=== PATIENT | male | born 1950 | race Caucasian/White ===

== ENCOUNTER 2020-12-05 12:03 | Inpatient (IN) ==
[2020-12-05 14:25] LABS: Basophils # (auto) 0.01 K/uL (0-0.2); Basophils % (auto) 0.1 %; Eosinophils # (auto) 0.01 K/uL (0-0.5); Eosinophils % (auto) 0.1 %; Hematocrit (blood only) 39.6 % (42-52); Hemoglobin 13.3 g/dL (14.0-18.0); Immature Granulocytes # (auto) 0.04 K/uL (0.00-0.02); Immature Granulocytes % (auto) 0.4 %; Lymphocytes # (auto) 0.41 K/uL (1.2-3.4); Lymphocytes % (auto) 4.2 %; Mean Corpuscular Hemoglobin 28.4 pg (25-34); Mean Corpuscular Hgb Conc 33.6 g/dL (32-36); Mean Corpuscular Volume 84.4 fL (80-100); Mean Platelet Volume 9.8 fL (7.4-10.4); Monocytes # (auto) 0.65 K/uL (0.11-0.59); Monocytes % (auto) 6.7 %; Neutrophils # (auto) 8.63 K/uL (1.4-6.5); Neutrophils % (auto) 88.5 %; Platelet Count 205 K/uL (130-400); RDW Coefficient of Variation 13.5 % (11.5-14.5); RDW Standard Deviation 41.5 fL (36.4-46.3); Red Blood Count 4.69 M/uL (4.7-6.1); White Blood Count 9.75 K/uL (4.8-10.8)
[2020-12-05 14:46] LABS: Albumin Level 3.1 gm/dl (3.4-5.0); BUN Creatinine Ratio 14.8 (10-20); Calcium 8.6 mg/dl (8.5-10.1); Creatinine Clr Calc Pharmacy 62.4 ml/min; Est GFR (African American) 71.3 ml/min; Est GFR (Non-African American) 61.5 ml/min
[2020-12-05 14:48] LABS: Albumin Globulin Ratio 0.7 (0.9-2); Bilirubin,Total 0.7 mg/dl (0.2-1); Globulin 4.6 gm/dl (2.5-4.0); Total Protein 7.7 gm/dl (6.4-8.2)
[2020-12-05 15:00] LABS: Appearance Urine Clear (Clear); Bacteria Urine Automated Negative (Negative); Blood Urine Negative (Negative); Color Urine Dark Yellow; Glucose Urine UA Negative (Negative); Ketones Urine Trace (Negative); Leukocyte Esterase Urine Negative (Negative); Nitrite Urine Negative (Negative); Protein Urine 2+ (Negative); Specific Gravity Urine 1.027 (1.000-1.030); Urobilinogen Urine Positive (Negative); pH Urine 5.5 (4.5-7.5)
[2020-12-05 15:01] LABS: Bilirubin Urine 1+ (Negative)
--- NOTE | 2020-12-05 15:13 | XRay Report ---
XR chest 1V portable HISTORY: Fever COMPARISON: None. FINDINGS: No pneumothorax. No focal lung consolidations to suggest pneumonia. There is blunting of th e left lateral costophrenic sulcus which may represent a small left pleural effusion. There is a larg e hiatus hernia. The heart is normal in size. No evidence for pulmonary edema. Small linear density w ithin the left midlung zone favors subsegmental atelectasis are scarring. IMPRESSION: 1. Blunting of the left lateral costophrenic sulcus which likely represents a small left pleural effu avinash. 2. No focal lung consolidations to suggest pneumonia. 3. Large hiatus hernia. ACT 112: Negative or not required by law. Electronically signed by: Red Grey M.D. 12/05/2020 3:12 PM
[2020-12-05] MEDS ORDERED: cefTRIAXone SODIUM 1,000 MG/50 ML BAG IV STA (15:38)
[2020-12-05] MEDS ORDERED: SODIUM CHLORIDE 0.9% 1000ML 1,000 ML IV ONE (15:38)
--- NOTE | 2020-12-05 15:51 | Emergency Department Note ---
Impression & Plan Atrial fibrillation with rapid ventricular response, Anaplasmosis, Elevated liver enzymes, Hyponatremia ED Provider Note NAME: RODOLFO GRAYSON AGE: 70 SEX: M : 1950 ARRIVES VIA: Walk-In INFORMANT: Patient, ED PROVIDER(S): Afshin Nobles DO CHIEF COMPLAINT: Fever HPI: The patient is a 70-year-old male who presented to the emergency department for an evaluation of fever. The patient states he has had generalized weakness over the course of the last 9 days. The patient states he has been having intermittent fevers. He last took medication for fever yesterday. The patient states he has some abdominal pain. He denies having any nausea or vomiting. He denies having any chest pain or difficulty breathing. He does have a slight cough which is nonproductive. He states that he has loss of taste and has no appetite. He has had decreased p.o. intake because this. He denies having any rash or recent tick bites. The patient denies having any recent traveling. He denies having any dysuria or frequency. The patient was seen by his primary care physician today and was referred to the emergency department for further evaluation as well as possible blood infection. ROS: See above HPI for pertinent positives & negatives. A total of 10 systems reviewed and were otherwise negative. PAST MEDICAL HISTORY: See Below PAST SURGICAL HISTORY: See Below FAMILY HISTORY: See Below SOCIAL HISTORY: See Below HOME MEDICATIONS: See Below ALLERGIES: See Below VITALS: See Below PHYSICAL EXAMINATION: GENERAL: Patient is awake alert in no acute distress patient is resting comfortably and showing no signs of anxiety EYES: The conjunctivae are clear. The pupils are round and reactive. EARS, NOSE, MOUTH AND THROAT: The nose is without any evidence of any deformity. NECK: The neck is nontender and supple. RESPIRATORY: Normal respiratory effort is noted there is no evidence of wheezing rhonchi or rales CARDIOVASCULAR: Regular rate and rhythm noted there no murmurs rubs or gallops normal S1 normal S2. GASTROINTESTINAL: The abdomen is soft. Abdomen is nontender. MUSCULOSKELETAL/EXTREMITIES: There is no evidence of gross deformity full range of motion is noted in the hips and shoulders. SKIN: There is no obvious evidence of any rash. There are no petechiae, pallor or cyanosis noted. NEUROLOGIC: Patient is awake alert and oriented x3 strength is symmetric patellar reflexes are 2+ bilaterally MEDICAL DECISION MAKING: The patient is a 70-year-old male who presented to the emergency department for evaluation of febrile illness. The patient's been having symptoms for the last 2 days. He went to see his family doctor but was ultimately referred to the emergency department for further evaluation. The patient was treated with IV fluids in the emergency department. He was also treated with IV antibiotics. Given his laboratory findings I thought his condition could be consistent with a tickborne illness. Those laboratories were sent. While the patient was being evaluated he started to have episodes of tachycardia and was found to be in rapid atrial fibrillation. He was treated with further IV fluids as well as IV Cardizem but given his blood pressure he only had a small dose. His rate improved. I discussed the patient's condition with the on-call [facility] hospitalist group. They have agreed to evaluate the patient in the emergency department for further management and disposition. It is possible the patient may require further cardiac work-up as this would be a new diagnosis for him. Triage Nursing notes reviewed. Prior medical records reviewed Vital Signs: reviewed and remarkable for tachycardia and hypotension. Differential diagnosis: Viral syndrome, otitis, pharyngitis, pneumonia, influenza, meningitis, urinary tract infection, sepsis, bacteremia, as well as other pathologies. ER treatment provided: See below Diagnostics interpreted by me: ECG: EKG was obtained in the emergency department. My interpretation is atrial fibrillation with rapid ventricular response at 135 bpm. There was no PVCs noted. A right bundle branch block pattern was noted. This was compared to a tracing from November [id number]. The atrial fibrillation as well as the conduction delay is new compared to the previous tracing. Cardiac Monitoring: An order was placed for continuous cardiac monitoring. The monitor shows a rate of 111 bpm with sinus rhythm with runs of atrial fibrillation. Laboratory studies: As stated above and show below. Imaging studies: See below Consultation(s): 1814: I discussed this case with Johnathon who is on-call for the [facility] hospitalist group. ED COURSE: Procedures: none PDMP:reviewed and no issues Critical Care: I have personally spent greater than 35 minutes of critical care time in the direct management of this patient. This includes bedside care, interpretation of diagnostic studies, and testing, discussion with consultants, patient, and family members, and other required patient management activities. This 35 minutes is in excess of all separately billable procedures. Past Med/Surg History Medical History (Updated 12/05/20 @ 20:26 by Afshin Nobles DO) Hiatal hernia (11/30/12) Hyperlipidemia (11/30/12) Surgical History S/P cholecystectomy Social History Smoking Status: Former smoker Smoking End Date: 50 years ago for two years.; Hx Alcohol Use: No Hx Substance Use: No Preferred Language: Polish Communication Ability: Effective Traffic Counter Required: No Beliefs That Will Affect Care: None Current Living Situation: Significant Other Other Information That Helps Us Care for You: No Feels Safe at Home: Yes Safety Concerns: Feels Safe At This Time Assistive Devices: Glasses and Hearing Aid - Bilateral Allergies Allergies Allergy/AdvReac Type Severity Reaction Status Date / Time No Known Allergies Allergy Unverified 12/05/20 17:01 Home Meds Home Medications Medication Instructions Recorded Confirmed acetaminophen 325 mg tablet 650 mg PO QID PRN 12/05/20 12/05/20 (Tylenol) rosuvastatin 5 mg tablet 5 mg PO HS 12/05/20 12/05/20 Results & Data (ED) Vital Signs Vital Signs - 24 hr 12/05/20 12:29 12/05/20 15:00 12/05/20 15:30 Temperature 37 C Temperature Source Temporal Artery Scan Pulse Rate 127 H 113 H 109 H Pulse Rate [Left Apical] 113 H Pulse Rate from SpO2 Sensor 113 H 106 H Pulse Rhythm [Left Apical] Regular Pulse Strength [Left Apical] Normal Respiratory Rate 20 16 24 Respiratory Effort / Characteristics Non-Labored Spontaneous Non-Labored Spontaneous Respiratory Depth Normal Normal Respiratory Pattern Regular Regular Blood Pressure 122/80 113/78 106/72 Blood Pressure [Left Arm] 113/78 Blood Pressure Mean 94 89 83 Blood Pressure Mean [Left Arm] 89 Blood Pressure Position Sitting Blood Pressure Position [Left Arm] Lying Pulse Oximetry 94 97 95 Oxygen Delivery Method Room Air Room Air Sepsis Recent Fever Within 48 Hours No Sepsis New/Unexplained Change in Mental Status N/A Sepsis Action Taken by Nursing No Action Required 12/05/20 17:20 12/05/20 17:30 12/05/20 18:00 Temperature Temperature Source Pulse Rate 167 H 139 H 113 H Pulse Rate [Left Apical] Pulse Rate from SpO2 Sensor 129 H 111 H Pulse Rhythm [Left Apical] Pulse Strength [Left Apical] Respiratory Rate 26 H 23 24 Respiratory Effort / Characteristics Respiratory Depth Respiratory Pattern Blood Pressure 92/70 L 110/76 Blood Pressure [Left Arm] Blood Pressure Mean 77 87 Blood Pressure Mean [Left Arm] Blood Pressure Position Blood Pressure Position [Left Arm] Pulse Oximetry 95 94 Oxygen Delivery Method Sepsis Recent Fever Within 48 Hours Sepsis New/Unexplained Change in Mental Status Sepsis Action Taken by Nursing 12/05/20 18:30 Temperature Temperature Source Pulse Rate 110 H Pulse Rate [Left Apical] Pulse Rate from SpO2 Sensor 109 H Pulse Rhythm [Left Apical] Pulse Strength [Left Apical] Respiratory Rate 22 Respiratory Effort / Characteristics Respiratory Depth Respiratory Pattern Blood Pressure 112/78 Blood Pressure [Left Arm] Blood Pressure Mean 89 Blood Pressure Mean [Left Arm] Blood Pressure Position Blood Pressure Position [Left Arm] Pulse Oximetry 94 Oxygen Delivery Method Sepsis Recent Fever Within 48 Hours Sepsis New/Unexplained Change in Mental Status Sepsis Action Taken by Group Home Medications Current Medication List: was personally reviewed by me Laboratory Data Attestation: I reviewed the patient's lab results. Result diagrams: 12/05/20 14:13 12/05/20 14:13 Lab Results 12/05/20 12/05/20 12/05/20 Range/Units 14:13 14:13 14:13 WBC 9.75 (4.8-10.8) K/uL RBC 4.69 L (4.7-6.1) M/uL Hgb 13.3 L (14.0-18.0) g/dL Hct 39.6 L (42-52) % MCV 84.4 (80-100) fL MCH 28.4 (25-34) pg MCHC 33.6 (32-36) g/dL RDW Std Deviation 41.5 (36.4-46.3) fL RDW Coeff of Sandro 13.5 (11.5-14.5) % Plt Count 205 (130-400) K/uL MPV 9.8 (7.4-10.4) fL Immature Gran % (Auto) 0.4 % Neut % (Auto) 88.5 % Lymph % (Auto) 4.2 % [place] % (Auto) 6.7 % Eos % (Auto) 0.1 % Baso % (Auto) 0.1 % Neut # (Auto) 8.63 H (1.4-6.5) K/uL Lymph # (Auto) 0.41 L (1.2-3.4) K/uL [place] # (Auto) 0.65 H (0.11-0.59) K/uL Eos # (Auto) 0.01 (0-0.5) K/uL Baso # (Auto) 0.01 (0-0.2) K/uL Immature Gran # (Auto) 0.04 H (0.00-0.02) K/uL Sodium 129 L (136-145) mmol/L Potassium 4.0 (3.5-5.1) mmol/L Chloride 97 L (98-107) mmol/L Carbon Dioxide 24 (21-32) mmol/L Anion Gap 9.0 (3-11) BUN 18 (7-18) mg/dl Creatinine 1.19 (0.6-1.4) mg/dl Est Cr Clr Drug Dosing 62.4 ml/min Est GFR ( Amer) 71.3 ml/min Est GFR (Non-Af Amer) 61.5 ml/min BUN/Creatinine Ratio 14.8 (10-20) Glucose 119 H (70-99) mg/dl Calcium 8.6 (8.5-10.1) mg/dl Magnesium (1.8-2.4) mg/dl Total Bilirubin 0.7 (0.2-1) mg/dl AST 68 H (15-37) U/L ALT 116 H (12-78) U/L Alkaline Phosphatase 140 H (45-117) U/L Troponin I (0-0.045) ng/ml Total Protein 7.7 (6.4-8.2) gm/dl Albumin 3.1 L (3.4-5.0) gm/dl Globulin 4.6 H (2.5-4.0) gm/dl Albumin/Globulin Ratio 0.7 L (0.9-2) TSH (0.300-4.500) uIu/ml Urine Color Urine Appearance (Clear) Urine pH (4.5-7.5) Ur Specific [place] (1.000-1.030) Urine Protein (Negative) Urine Glucose (UA) (Negative) Urine Ketones (Negative) Urine Blood (Negative) Urine Nitrite (Negative) Urine Bilirubin (Negative) Urine Urobilinogen (Negative) Ur Leukocyte Esterase (Negative) Urine WBC (Auto) (0-5) /hpf Urine RBC (Auto) (0-4) /hpf U Hyaline Cast (Auto) (0-5) /lpf U Epithel Cells (Auto) (0-5) /lpf Urine Bacteria (Auto) (Negative) Anaplasma Smear See Comment A Anaplasma Comment Not Reportable Lyme Disease IgG Ab (Negative) Lyme Disease IgM Ab (Negative) COVID-19 Eval Order SARS-CoV-2 (PCR) (Negative) 12/05/20 12/05/20 12/05/20 Range/Units 14:13 14:45 16:19 WBC (4.8-10.8) K/uL RBC (4.7-6.1) M/uL Hgb (14.0-18.0) g/dL Hct (42-52) % MCV (80-100) fL MCH (25-34) pg MCHC (32-36) g/dL RDW Std Deviation (36.4-46.3) fL RDW Coeff of Sandro (11.5-14.5) % Plt Count (130-400) K/uL MPV (7.4-10.4) fL Immature Gran % (Auto) % Neut % (Auto) % Lymph % (Auto) % [place] % (Auto) % Eos % (Auto) % Baso % (Auto) % Neut # (Auto) (1.4-6.5) K/uL Lymph # (Auto) (1.2-3.4) K/uL [place] # (Auto) (0.11-0.59) K/uL Eos # (Auto) (0-0.5) K/uL Baso # (Auto) (0-0.2) K/uL Immature Gran # (Auto) (0.00-0.02) K/uL Sodium (136-145) mmol/L Potassium (3.5-5.1) mmol/L Chloride (98-107) mmol/L Carbon Dioxide (21-32) mmol/L Anion Gap (3-11) BUN (7-18) mg/dl Creatinine (0.6-1.4) mg/dl Est Cr Clr Drug Dosing ml/min Est GFR ( Amer) ml/min Est GFR (Non-Af Amer) ml/min BUN/Creatinine Ratio (10-20) Glucose (70-99) mg/dl Calcium (8.5-10.1) mg/dl Magnesium 2.5 H (1.8-2.4) mg/dl Total Bilirubin (0.2-1) mg/dl AST (15-37) U/L ALT (12-78) U/L Alkaline Phosphatase (45-117) U/L Troponin I < 0.015 (0-0.045) ng/ml Total Protein (6.4-8.2) gm/dl Albumin (3.4-5.0) gm/dl Globulin (2.5-4.0) gm/dl Albumin/Globulin Ratio (0.9-2) TSH 1.180 (0.300-4.500) uIu/ml Urine Color Dark Yellow Urine Appearance Clear (Clear) Urine pH 5.5 (4.5-7.5) Ur Specific [place] 1.027 (1.000-1.030) Urine Protein 2+ H (Negative) Urine Glucose (UA) Negative (Negative) Urine Ketones Trace H (Negative) Urine Blood Negative (Negative) Urine Nitrite Negative (Negative) Urine Bilirubin 1+ H (Negative) Urine Urobilinogen Positive H (Negative) Ur Leukocyte Esterase Negative (Negative) Urine WBC (Auto) 1-5 (0-5) /hpf Urine RBC (Auto) 5-10 H (0-4) /hpf U Hyaline Cast (Auto) 10-30 H (0-5) /lpf U Epithel Cells (Auto) 10-20 H (0-5) /lpf Urine Bacteria (Auto) Negative (Negative) Anaplasma Smear Anaplasma Comment Lyme Disease IgG Ab Negative (Negative) Lyme Disease IgM Ab Negative (Negative) COVID-19 Eval Order SARS-CoV-2 (PCR) (Negative) 12/05/20 12/05/20 Range/Units 17:30 17:30 WBC (4.8-10.8) K/uL RBC (4.7-6.1) M/uL Hgb (14.0-18.0) g/dL Hct (42-52) % MCV (80-100) fL MCH (25-34) pg MCHC (32-36) g/dL RDW Std Deviation (36.4-46.3) fL RDW Coeff of Sandro (11.5-14.5) % Plt Count (130-400) K/uL MPV (7.4-10.4) fL Immature Gran % (Auto) % Neut % (Auto) % Lymph % (Auto) % [place] % (Auto) % Eos % (Auto) % Baso % (Auto) % Neut # (Auto) (1.4-6.5) K/uL Lymph # (Auto) (1.2-3.4) K/uL [place] # (Auto) (0.11-0.59) K/uL Eos # (Auto) (0-0.5) K/uL Baso # (Auto) (0-0.2) K/uL Immature Gran # (Auto) (0.00-0.02) K/uL Sodium (136-145) mmol/L Potassium (3.5-5.1) mmol/L Chloride (98-107) mmol/L Carbon Dioxide (21-32) mmol/L Anion Gap (3-11) BUN (7-18) mg/dl Creatinine (0.6-1.4) mg/dl Est Cr Clr Drug Dosing ml/min Est GFR ( Amer) ml/min Est GFR (Non-Af Amer) ml/min BUN/Creatinine Ratio (10-20) Glucose (70-99) mg/dl Calcium (8.5-10.1) mg/dl Magnesium (1.8-2.4) mg/dl Total Bilirubin (0.2-1) mg/dl AST (15-37) U/L ALT (12-78) U/L Alkaline Phosphatase (45-117) U/L Troponin I (0-0.045) ng/ml Total Protein (6.4-8.2) gm/dl Albumin (3.4-5.0) gm/dl Globulin (2.5-4.0) gm/dl Albumin/Globulin Ratio (0.9-2) TSH (0.300-4.500) uIu/ml Urine Color Urine Appearance (Clear) Urine pH (4.5-7.5) Ur Specific [place] (1.000-1.030) Urine Protein (Negative) Urine Glucose (UA) (Negative) Urine Ketones (Negative) Urine Blood (Negative) Urine Nitrite (Negative) Urine Bilirubin (Negative) Urine Urobilinogen (Negative) Ur Leukocyte Esterase (Negative) Urine WBC (Auto) (0-5) /hpf Urine RBC (Auto) (0-4) /hpf U Hyaline Cast (Auto) (0-5) /lpf U Epithel Cells (Auto) (0-5) /lpf Urine Bacteria (Auto) (Negative) Anaplasma Smear Anaplasma Comment Lyme Disease IgG Ab (Negative) Lyme Disease IgM Ab (Negative) COVID-19 Eval Order Covid19 at [facility] SARS-CoV-2 (PCR) NEGATIVE (Negative) Administered Medications Magnesium Sulfate/Dextrose (Magnesium Sulfate / D5w) 1 gm in 100 mls @ 50 mls/hr IV Q2H STA Stop: 12/05/20 20:22 Last Infusion: 12/05/20 19:30 Dose: 0 mls/hr Documented by: [id number] Admin: 12/05/20 18:30 Dose: 50 mls/hr Documented by: [id number] Discontinued Medications Diltiazem HCl (Diltiazem Hcl 5 Mg/Ml 5 Ml Vial) 5 mg IV NOW STA Stop: 12/05/20 18:01 Last Admin: 12/05/20 18:23 Dose: 5 mg Documented by: [id number] Cosigned by: [id number] Doxycycline Hyclate (Doxycycline Hyclate 100 Mg Cap) 200 mg PO NOW STA Stop: 12/05/20 17:24 Last Admin: 12/05/20 17:55 Dose: 200 mg Documented by: [id number] Sodium Chloride (Nss 1000ml) 1,000 mls @ 999 mls/hr IV .Q1H1M ONE Stop: 12/05/20 16:38 Last Infusion: 12/05/20 17:18 Dose: 0 mls/hr Documented by: [id number] Admin: 12/05/20 16:00 Dose: 999 mls/hr Documented by: [id number] Ceftriaxone Sodium (Rocephin) 1,000 mg in 50 mls @ 100 mls/hr IV NOW STA Stop: 12/05/20 16:07 Last Infusion: 12/05/20 17:54 Dose: 0 mls/hr Documented by: [id number] Admin: 12/05/20 17:18 Dose: 100 mls/hr Documented by: [id number] Lactated Ringer's (Lr) 500 mls @ 999 mls/hr IV .Q31M ONE Stop: 12/05/20 18:54 Last Admin: 12/05/20 19:30 Dose: 999 mls/hr Documented by: [id number] Imaging Data Radiologist's Impression: Chest X-Ray 12/05/20 12:39 XR chest 1V portable HISTORY: Fever COMPARISON: None. FINDINGS: No pneumothorax. No focal lung consolidations to suggest pneumonia. There is blunting of the left lateral costophrenic sulcus which may represent a small left pleural effusion. There is a large hiatus hernia. The heart is normal in size. No evidence for pulmonary edema. Small linear density within the left midlung zone favors subsegmental atelectasis are scarring. IMPRESSION: 1. Blunting of the left lateral costophrenic sulcus which likely represents a small left pleural effusion. 2. No focal lung consolidations to suggest pneumonia. 3. Large hiatus hernia. ACT 112: Negative or not required by law. Electronically signed by: Red Grey M.D. 12/05/2020 3:12 PM Discharge Plan Visit Data Chief Complaint: Abnormal Labs/Diagnostic Testing Stated Complaint: BLOOD INFECTION, DR BARBOSA REF'D ED Provider: Afshin Nobles ED Midlevel Provider: Andrei Azul Discharge Problem: Atrial fibrillation with rapid ventricular response, Anaplasmosis, Elevated liver enzymes, Hyponatremia Patient Disposition: Admitted As Inpatient Condition: Good Discharge Instructions Interventions: ED Discharge Assessment Last Done: 12/05/20 19:36
[2020-12-05 17:20] LABS: Lyme Ab IgG w/WB Rflx Negative (Negative); Lyme Ab IgM w/WB Rflx Negative (Negative)
[2020-12-05] MEDS ORDERED: DOXYCYCLINE HYCLATE 100 MG CAP PO STA (17:23)
[2020-12-05] MEDS ORDERED: dilTIAZem HCl 5 MG/ML 5 ML VIAL IV STA (18:00)
[2020-12-05] MEDS ORDERED: MAGNESIUM SULFATE / D5W 1 GM/100 ML BAG IV STA (18:23)
[2020-12-05] MEDS ORDERED: LACTATED RINGER'S 500 ML IV ONE ×2 (18:24→19:29)
[2020-12-05 18:32] LABS: Magnesium 2.5 mg/dl (1.8-2.4); Troponin I < 0.015 ng/ml (0-0.045)
[2020-12-05] MEDS ORDERED: LACTATED RINGER'S 1,000 ML IV ONE (18:44)
--- NOTE | 2020-12-05 18:58 | History & Physical Report ---
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- smear pending - History of tick bites - Joint aches, fevers, elevated liver enzymes - Continue Doxycycline 100mg IV q 12 (2) Sepsis: Plan: SIRS- 3; Qsofa- 1- technically meets sepsis criteria - Continue with crystalloid resuscitation - Ceftriaxone 1 GM daily- emperic de-escalate with cultures and clinically able - Organ dysfunction as below- septic secondary to number 1 - Lactate pending - CRP pending - PCT pending (3) Elevated liver enzymes: Plan: Likely acute phase reactant and associated with tick borne disease - Continue with resuscitation - ABX as above - Bili normal - Patient has had cholecystomy, normal abdominal exam (4) Sinus tachycardia: Plan: Hypovolemia- consistent with hyponatremia, hypochloridemia, spec grav 1.017 - Replace volume - TSH normal - 2 Gm Mag prophylacxis IV now - HR increased to 140 with sitting on edge of bed - Telemetry monitoring over night (5) Hyponatremia: Plan: As above- hypovolemic hyponatremia - Mild at 129 asymptomatic - follow (6) Urine abnormality: Plan: RBC 5-10 with casts - As above hypovolemia with sepsis - No pathology for rhabdo- however check CK - Continue volume resuscitation History of Present Illness Primary Care Provider: Anthony Walters Jr, DO 70 YOM with past medical history of: HLD, Hiatal hernia, cholecystectomy. Jesika calderón was referred to the EMD today from direction of his PCP or concerns of infection. The patient endorses 4-5 days of fevers, with joint aches all over, chills with rigors, fatigue and headache. This led him to decrease his PO intake with fluid and food from being too fatigued. He denies any recent travel and has had his COVID vaccine. He does endorse a few tick bites a couple of weeks ago. In the EMD he had routine labs drawn as well as Lyme and Anaplasmosis smear. In the EMD it was noted that his HR was tachycardic in the 120-140 NSR. CXR was done that revealed small left plueral effusion and large hiatal hernia. Urine sample was obtained which is negative for bacteria but positive for RBC and casts, and blood cultures have been sent. He received 1 dose of Ceftriaxone and 1 dose of IV doxycycline. He received 1 liter of crystalloid and just ordered another for total of 2 liters which will be followed with LR 125 per hour x1 liter. EMD gave 5 mg of Diltazem. Patient will be admitted for continued resuscitation and continual treatment of his likely anaplasmosis as his smear reveals Intracytoplasmic neutrophilic inclusions with smear to follow. Allergies Allergy/AdvReac Type Severity Reaction Status Date / Time No Known Allergies Allergy Unverified 12/05/20 17:01 Home Medications Medication Instructions Recorded Confirmed Type acetaminophen 325 mg tablet 650 mg PO QID PRN 12/05/20 12/05/20 History (Tylenol) rosuvastatin 5 mg tablet 5 mg PO HS 12/05/20 12/05/20 History Past Med/Surg History Medical History (Updated 12/05/20 @ 19:25 by TESSIE Ribera) Hiatal hernia (11/30/12) Hyperlipidemia (11/30/12) Surgical History S/P cholecystectomy Social History Preferred Language: Turkmen Feels Safe at Home: Yes Review of Systems Review of Systems: REVIEW OF SYSTEMS: Constitutional: (+) fever, sweats or chills Eyes: No diplopia, no worsening or blurred vision ENT: normal hearing, no trouble swallowing Respiratory: No cough, sputum, dyspnea at rest or on exertion Cardiovascular: No chest pain, tightness or palpitations Abdomen: (+) diarrhea, No pain, nausea, vomiting, constipation Musculoskeletal: (+) joint pain, No calf pain, swelling Neurologic: (+) headache No weakness, numbness/tingling, or balance problems Psychiatric: No anxiety or depression Skin: No rash or itch Physical Exam Physical Exam: PHYSICAL EXAM: General: awake, alert, no apparent distress Head: Normocephalic, atraumatic ENT: PERRL, EOMI, no pharyngeal exudate, mucous membranes moist Neuro: AAO x 3, speech clear and appropriate, strength intact bilaterally 5/5, sensation intact and equal all extremities and dermatomes, no pronator drift Chest: equal rise and fall of the chest, no accessory muscle use, no heaves or thrills, Clear to auscultation, on room air Cardiac: Regular rate and rhythm, telemetry reviewed- Sinus tachycardia with PVC, skin warm dry, cap refill <3 seconds, peripheral pulses +2 no JVD, no murmur, no edema GI: NABS x 4 quadrants, soft, nontender to palpation, no rebound, guarding or tenderness : Spontaneously voiding- dark alise urine, no pain, no CVA tenderness, Extremities: Normal inspection, no peripheral edema or erythema, calfs nontender to palpation MSK: Joint pain to multiple joints without effusion or erythema Psych: Normal mood and affect Skin: no rash or erythema Results & Data Results & Data ([facility]) Vital Signs (Past 12 Hours) Vital Signs Temp Pulse Pulse Resp BP BP Pulse Ox 12/05/20 18:00 113 H 24 110/76 94 12/05/20 17:30 139 H 23 92/70 L 95 12/05/20 17:20 167 H 26 H 12/05/20 15:30 109 H 24 106/72 95 12/05/20 15:00 113 H 113 H 16 113/78 113/78 97 12/05/20 12:29 37 C 127 H 20 122/80 94 Laboratory Results Abnormal lab results 12/05/20 12/05/20 12/05/20 Range/Units 14:13 14:13 14:13 RBC 4.69 L (4.7-6.1) M/uL Hgb 13.3 L (14.0-18.0) g/dL Hct 39.6 L (42-52) % Neut # (Auto) 8.63 H (1.4-6.5) K/uL Lymph # (Auto) 0.41 L (1.2-3.4) K/uL Pine # (Auto) 0.65 H (0.11-0.59) K/uL Immature Gran # (Auto) 0.04 H (0.00-0.02) K/uL Sodium 129 L (136-145) mmol/L Chloride 97 L (98-107) mmol/L Glucose 119 H (70-99) mg/dl Magnesium (1.8-2.4) mg/dl AST 68 H (15-37) U/L ALT 116 H (12-78) U/L Alkaline Phosphatase 140 H (45-117) U/L Albumin 3.1 L (3.4-5.0) gm/dl Globulin 4.6 H (2.5-4.0) gm/dl Albumin/Globulin Ratio 0.7 L (0.9-2) Urine Protein (Negative) Urine Ketones (Negative) Urine Bilirubin (Negative) Urine Urobilinogen (Negative) Urine RBC (Auto) (0-4) /hpf U Hyaline Cast (Auto) (0-5) /lpf U Epithel Cells (Auto) (0-5) /lpf Anaplasma Smear See Comment A 12/05/20 12/05/20 Range/Units 14:13 14:45 RBC (4.7-6.1) M/uL Hgb (14.0-18.0) g/dL Hct (42-52) % Neut # (Auto) (1.4-6.5) K/uL Lymph # (Auto) (1.2-3.4) K/uL Pine # (Auto) (0.11-0.59) K/uL Immature Gran # (Auto) (0.00-0.02) K/uL Sodium (136-145) mmol/L Chloride (98-107) mmol/L Glucose (70-99) mg/dl Magnesium 2.5 H (1.8-2.4) mg/dl AST (15-37) U/L ALT (12-78) U/L Alkaline Phosphatase (45-117) U/L Albumin (3.4-5.0) gm/dl Globulin (2.5-4.0) gm/dl Albumin/Globulin Ratio (0.9-2) Urine Protein 2+ H (Negative) Urine Ketones Trace H (Negative) Urine Bilirubin 1+ H (Negative) Urine Urobilinogen Positive H (Negative) Urine RBC (Auto) 5-10 H (0-4) /hpf U Hyaline Cast (Auto) 10-30 H (0-5) /lpf U Epithel Cells (Auto) 10-20 H (0-5) /lpf Anaplasma Smear Diagnostic Findings Chest X-Ray 12/05/20 12:39 XR chest 1V portable HISTORY: Fever COMPARISON: None. FINDINGS: No pneumothorax. No focal lung consolidations to suggest pneumonia. There is blunting of the left lateral costophrenic sulcus which may represent a small left pleural effusion. There is a large hiatus hernia. The heart is normal in size. No evidence for pulmonary edema. Small linear density within the left midlung zone favors subsegmental atelectasis are scarring. IMPRESSION: 1. Blunting of the left lateral costophrenic sulcus which likely represents a small left pleural effusion. 2. No focal lung consolidations to suggest pneumonia. 3. Large hiatus hernia. Electronically signed by: Red Grey M.D. 12/05/2020 3:12 PM Medications Administered Magnesium Sulfate/Dextrose (Magnesium Sulfate / D5w) 1 gm in 100 mls @ 50 mls/hr IV Q2H STA Stop: 12/05/20 20:22 Last Admin: 12/05/20 18:30 Dose: 50 mls/hr Documented by: [id number] Discontinued Medications Diltiazem HCl (Diltiazem Hcl 5 Mg/Ml 5 Ml Vial) 5 mg IV NOW STA Stop: 12/05/20 18:01 Last Admin: 12/05/20 18:23 Dose: 5 mg Documented by: [id number] Cosigned by: [id number] Doxycycline Hyclate (Doxycycline Hyclate 100 Mg Cap) 200 mg PO NOW STA Stop: 12/05/20 17:24 Last Admin: 12/05/20 17:55 Dose: 200 mg Documented by: [id number] Sodium Chloride (Nss 1000ml) 1,000 mls @ 999 mls/hr IV .Q1H1M ONE Stop: 12/05/20 16:38 Last Infusion: 12/05/20 17:18 Dose: 0 mls/hr Documented by: [id number] Admin: 12/05/20 16:00 Dose: 999 mls/hr Documented by: [id number] Ceftriaxone Sodium (Rocephin) 1,000 mg in 50 mls @ 100 mls/hr IV NOW STA Stop: 12/05/20 16:07 Last Infusion: 12/05/20 17:54 Dose: 0 mls/hr Documented by: [id number] Admin: 12/05/20 17:18 Dose: 100 mls/hr Documented by: [id number] ECG Additional Comments: ECG in EMD - Appears as sinus tachycardia with RBBB- interpreted as Atrial fibrillation with rapid ventricular response Right bundle branch block Left anterior fascicular block ECG repeat- pending Code Status & VTE Plan Code Status CODE: FULL VTE: SCD's, Lovenox 40mg sub q daily VTE Prophylaxis Plan VTE Prophylaxis will be ordered: Yes Supervising Physician Co-Signing Physician Notes I have personally evaluated and examined this patient. I agree with assessment and plan of Brezovic MINGLER OPERATOR Dehydration with probable anaplasmosis patient mentating and feels improved after receiving first fluids. PG Care Time/CCT Total # of Minutes Spent Total Time Spent with Patient: Total time spent is greater than 50% in coordinat ion of care (as documented) at patient's floor/unit and/or counseling patient: Coding Level of Care Code 88924 Initial Inpt Care Lvl 3 Diagnoses Anaplasmosis A77.49 Elevated liver enzymes R74.8 Sinus tachycardia R00.0 Hyponatremia E87.1 Urine abnormality R82.90 Sepsis A41.9
[2020-12-05] MEDS ORDERED: POLYETHYLENE (MIRALAX) 17 GM PACK PO PRN (19:59)
[2020-12-05] MEDS ORDERED: ONDANSETRON INJ 2 MG/ML 2 ML VIAL IV PRN (19:59)
[2020-12-05] MEDS ORDERED: ACETAMINOPHEN 325 MG TAB PO PRN (19:59)
[2020-12-05 20:28] LABS: Anaplasmosis Smear(Rpt to DOH) Pos for Anaplasma
[2020-12-05 20:51] LABS: C Reactive Protein 12.8 mg/dl (0-0.29)
[2020-12-05] MEDS ORDERED: ROSUVASTATIN CALCIUM 5 MG TAB PO SCH (21:00)
[2020-12-05] MEDS ORDERED: ENOXAPARIN INJ 40 MG/0.4 ML SYR SQ SCH (21:00)
[2020-12-05] MEDS ORDERED: dilTIAZem HCl 5 MG/ML 5 ML VIAL IV ONE (22:30)
[2020-12-05] MEDS ORDERED: dilTIAZem HCL 30 MG TAB PO ONE (22:39)
[2020-12-06] MEDS ORDERED: dilTIAZem HCL 30 MG TAB PO ONE ×2 (00:58→01:40)
--- NOTE | 2020-12-06 01:35 | Communication Note ---
Date of Service: December 06, 2020 Subjective: Nursing notified me that the patient was intermittently tachycardic into the 130's multiple times over the night. He would fluctuate between 100's - 130's up to 160's initially. Patient asymptomatic in the room with no chest pain, shortness of breath or palpitation. No prior history of HTN, heart failure, DM. Objective: Telemetry with atrial fibrillation w/ RVR EKG obtained: showing - A. fib. w/ RVR & RBBB BP: 105/80 A/P: 70 yo M w/ A. fib w/ RVR [id number] - 0 - given Diltiazem 5mg IV initially with no response and followed by 30 mg oral X2 - HR improved to the 80-100s - continue to monitor
[2020-12-06 04:33] LABS: Appearance Urine Clear (Clear); Bilirubin Urine Negative (Negative); Blood Urine Negative (Negative); Color Urine Yellow; Glucose Urine UA Negative (Negative); Ketones Urine Negative (Negative); Leukocyte Esterase Urine Negative (Negative); Nitrite Urine Negative (Negative); Protein Urine Negative (Negative); Specific Gravity Urine 1.008 (1.000-1.030); Urobilinogen Urine Negative (Negative); pH Urine 5.5 (4.5-7.5)
[2020-12-06] MEDS ORDERED: DOXYCYCLINE HYCLATE 100 MG in DEXTROSE 5% 100 ML IV SCH (06:00)
[2020-12-06 06:02] LABS: Basophils # (auto) 0.01 K/uL (0-0.2); Basophils % (auto) 0.1 %; Eosinophils # (auto) 0.04 K/uL (0-0.5); Eosinophils % (auto) 0.5 %; Hematocrit (blood only) 33.7 % (42-52); Hemoglobin 10.9 g/dL (14.0-18.0); Immature Granulocytes # (auto) 0.03 K/uL (0.00-0.02); Immature Granulocytes % (auto) 0.4 %; Lymphocytes # (auto) 0.75 K/uL (1.2-3.4); Lymphocytes % (auto) 10.2 %; Mean Corpuscular Hemoglobin 27.5 pg (25-34); Mean Corpuscular Hgb Conc 32.3 g/dL (32-36); Mean Corpuscular Volume 84.9 fL (80-100); Mean Platelet Volume 9.4 fL (7.4-10.4); Monocytes % (auto) 6.8 %; Platelet Count 172 K/uL (130-400); RDW Coefficient of Variation 13.5 % (11.5-14.5); Red Blood Count 3.97 M/uL (4.7-6.1); White Blood Count 7.33 K/uL (4.8-10.8)
--- NOTE | 2020-12-06 07:39 | Electrocardiogram Report ---
Test Reason : Blood Pressure : / mmHG Vent. Rate : 135 BPM Atrial Rate : 110 BPM P-R Int : 000 ms QRS Dur : 134 ms QT Int : 350 ms P-R-T Axes : 000 -54 040 degrees QTc Int : 525 ms Atrial fibrillation with rapid ventricular response Right bundle branch block Left anterior fascicular block Abnormal ECG When compared with ECG of 30-NOV-2012 23:38, Atrial fibrillation has replaced Sinus rhythm (RBBB and left anterior fascicular block) is now Present Confirmed by Kiet Garay ([id number]) on 12/06/2020 7:39:20 AM Referred By: Anthony Walters Confirmed By:Kiet Garay
[2020-12-06 07:46] LABS: BUN Creatinine Ratio 17.7 (10-20); Calcium 7.6 mg/dl (8.5-10.1); Creatinine Clr Calc Pharmacy 73.6 ml/min; Est GFR (African American) 86.9 ml/min; Magnesium 2.6 mg/dl (1.8-2.4); Potassium 3.8 mmol/L (3.5-5.1)
--- NOTE | 2020-12-06 07:53 | Hospitalist Progress Note ---
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 (3) Atrial fibrillation with rapid ventricular response: Plan: TSH WNL NSR since around 4am today after diltiazem given last night Suspect secondary to current sepsis and given [id number] 1 would defer full anticoagulation at the current time and keep on VTE prophylaxis. Consider 30 day monitor as outpatient (4) Elevated liver enzymes: Plan: Likely acute phase reactant and associated with tick borne disease - Continue with resuscitation - Bili normal - Patient has had cholecystomy, normal abdominal exam (5) Hyponatremia: Plan: Resolved. (6) Urine abnormality: Plan: RBC 5-10 with casts - Suspect secondary to hypovolemia with sepsis - Total CK low @ 26 U/L - Creatinine stable overnight, encourgage hydration but will continue off IV fluids at current time. Admission and Anticipated Discharge Date Admission Date: December 05, 2020 Results & Data Results & Data ([facility]) Vital Signs (Past 12 Hours) Vital Signs Temp Pulse Pulse Resp BP Pulse Ox Pulse Ox 12/06/20 04:04 36.6 C 82 16 95/53 L 94 12/06/20 01:12 130 H 105/80 12/05/20 23:44 100 H 12/05/20 23:08 37 C 136 H 18 105/67 94 12/05/20 22:22 132 H 106/69 12/05/20 22:20 129 H 12/05/20 19:59 113 H 98 12/05/20 19:50 37.4 C 111 H 18 109/71 95 PG Care Time/CCT Total # of Minutes Spent Total Time Spent with Patient: Total time spent is greater than 50% in coordination of care (as documented) at patient's floor/unit and/or counseling patient: Coding Diagnoses Anaplasmosis A77.49 Sepsis A41.9 Elevated liver enzymes R74.8 Hyponatremia E87.1 Urine abnormality R82.90 Atrial fibrillation with rapid ventricular response I48.91
--- NOTE | 2020-12-06 07:55 | Electrocardiogram Report ---
Test Reason : Blood Pressure : / mmHG Vent. Rate : 075 BPM Atrial Rate : 075 BPM P-R Int : 166 ms QRS Dur : 156 ms QT Int : 436 ms P-R-T Axes : 018 -47 -01 degrees QTc Int : 486 ms Normal sinus rhythm Right bundle branch block Left anterior fascicular block Abnormal ECG When compared with ECG of 05-DEC-2020 20:22, Premature supraventricular complexes are no longer Present Confirmed by Kiet Garay ([id number]) on 12/06/2020 7:55:11 AM Referred By: Anthony Walters Confirmed By:Kiet Garay
[2020-12-06] MEDS ORDERED: cefTRIAXone SODIUM 2,000 MG in DEXTROSE 5% 50 ML IV SCH (08:00)
[2020-12-06 08:53] LABS: Albumin Level 2.3 gm/dl (3.4-5.0); Bilirubin Direct 0.1 mg/dl (0-0.2); Bilirubin,Total 0.5 mg/dl (0.2-1); Total Protein 5.9 gm/dl (6.4-8.2)
--- NOTE | 2020-12-06 12:38 | XCELERA ---
[id number]
--- NOTE | 2020-12-06 14:59 | Discharge Summary ---
Date of Service December 06, 2020 Admission HPI Per Admitting Provider 70 YOM with past medical history of: HLD, Hiatal hernia, cholecystectomy. Patient was referred to the EMD today from direction of his PCP or concerns of infection. The patient endorses 4-5 days of fevers, with joint aches all over, chills with rigors, fatigue and headache. This led him to decrease his PO intake with fluid and food from being too fatigued. He denies any recent travel and has had his COVID vaccine. He does endorse a few tick bites a couple of weeks ago. In the EMD he had routine labs drawn as well as Lyme and Anaplasmosis smear. In the EMD it was noted that his HR was tachycardic in the 120-140 NSR. CXR was done that revealed small left plueral effusion and large hiatal hernia. Urine sample was obtained which is negative for bacteria but positive for RBC and casts, and blood cultures have been sent. He received 1 dose of Ceftriaxone and 1 dose of IV doxycycline. He received 1 liter of crystalloid and just ordered another for total of 2 liters which will be followed with LR 125 per hour x1 liter. EMD gave 5 mg of Diltazem. Patient will be admitted for continued resuscitation and continual treatment of his likely anaplasmosis as his smear reveals Intracytoplasmic neutrophilic inclusions with smear to follow. Principal Diagnosis Hypovolemia/Dehydration/Low sodium Anaplasmosis Atrial fibrillation with RVR Discharge Exam Constitutional WD/WN, vitals as above ENMT external ear and nose normal, oropharynx normal Neck trachea midline, no thyromegaly Respiratory normal respiratory effort, lungs clear to auscultation Cardiovascular RRR, no murmur, no edema Gastrointestinal (Abdomen) normal bowel sounds, soft, nontender, no hepatosplenomegaly Musculoskeletal no cyanosis or clubbing, extremities motor strength 5/5 Skin no rashes, warm and dry Neurologic moves all extremities and awake; not confused Psychiatric A+Ox3, euthymic affect Discharge Data Allergies Allergy/AdvReac Type Severity Reaction Status Date / Time No Known Allergies Allergy Unverified 12/05/20 17:01 Consultations 12/05/20 18:16 ED Decision to Admit Stat Hospital Course (1) Anaplasmosis: Pal Toledo is a 70 year old male admitted to [facility] [address] from December 05-31, 2021 due to 7-10 days of fever and joint aches. He was diagnosed with anaplasmosis on peripheral smear. This was treated with doxycycline and he recovered well overnight. He will continue on doxycycline as an outpatient for total 14 days. Recommend repeat lyme testing near the end of treatment to determine if he needs to extend this to 21 days. He was also incidentally noted to have paroxysmal atrial fibrillation, intermittently occurring overnight lasting for < 30 minutes. Echocardiogram showed incidental moderate aortic root dilatation of 4.2cm (recommend repeat echocardiogram in 1 year) but otherwise is unremarkable. Since atrial fibrillation was in the setting of an acute illness and he was not significantly symptomatic elected to not start medications for this at the current time and arrange outpatient 30 day classroom monitor. Script was given for this on discharge. [id number] 1. TSH normal. (2) Sepsis: (3) Atrial fibrillation with rapid ventricular response: (4) Elevated liver enzymes: (5) Hyponatremia: (6) Urine abnormality: Total Time Total Time Spent Total Time Spent (In Minutes): 50 Discharge Plan Discharge Items Patient Disposition: Home - Self-Care Reason For Visit: HYPOVLEMIA, ANAPLASMOSIS Discharge Diagnosis: Hypovolemia/Dehydration/Low sodium Anaplasmosis Atrial fibrillation with RVR Condition on Discharge: Good Activity: Resume your previous activity Non-emergency contact: Primary Care Provider Call non-emergency contact if: you have any medication questions and your symptoms worsen Follow-up/Referrals: Anthony Walters Jr, DO [Primary Care Provider] - 12/11/20 10:30 am Diet: Regular Addtl Attending Provider Instructions: You were admitted to [facility] [address] from December 05-2020 due to 7-10 days of fever and joint aches. You were diagnosed with anaplasmosis. This was treated with doxycycline and you recovered well overnight. Please continue doxycycline as prescribed and follow up with repeat lyme antibody testing near the end of the course with primary care physician follow up to see if you need a longer course of doxycycline. You were also incidentally noted to have paroxysmal atrial fibrillation. Echocardiogram showed incidental moderate aortic root dilatation (recommend repeat echocardiogram in 1 year) but otherwise is unremarkable. Since atrial fibrillation was in the setting of an acute illness and you were not significantly symptomatic elected to not start medications for this at the current time and arrange outpatient 30 day classroom monitor. Please follow up with your primary care physician for ongoing management and results of this. Kind regards, Dr Get Garcia Pending Studies at Discharge: No Stand-Alone Forms: My [facility], Smoking Cessation Medications and DC Order Prescriptions: New doxycycline hyclate 100 mg tablet 100 mg PO BID 13 Days Qty: 26 RF: 0 Continued rosuvastatin 5 mg tablet 5 mg PO HS RF: 0 acetaminophen [Tylenol] 325 mg Tablet 650 mg PO QID PRN (Reason: fever/pain) RF: 0 Discharge Orders: Discharge Order (Routine); Ordered 12/06/20 Ordered By: Get Schilling/Other Patient Handouts: ED Atrial Fibrillation, ED Tick Facts Admission Data Admit Date/Time: 12/05/20 18:43 Attending Provider: Get Garcia Admit Provider: Meredith Rogers Primary Care Provider: Anthony Walters Jr Other Providers: Meredith Rogers Other Interventions: Discharge Summary Assessment (RN) Last Done: 12/06/20 15:17 Coding Level of Care Code D/C DAY MANAGEMENT >30 MINS Diagnoses Anaplasmosis A77.49 Sepsis A41.9 Atrial fibrillation with rapid ventricular response I48.91 Elevated liver enzymes R74.8 Hyponatremia E87.1 Urine abnormality R82.90
--- NOTE | 2020-12-07 08:04 | Electrocardiogram Report ---
Test Reason : Blood Pressure : / mmHG Vent. Rate : 140 BPM Atrial Rate : 120 BPM P-R Int : 000 ms QRS Dur : 138 ms QT Int : 302 ms P-R-T Axes : 000 -57 046 degrees QTc Int : 461 ms Atrial fibrillation with rapid ventricular response Right bundle branch block Left anterior fascicular block Abnormal ECG When compared with ECG of 05-DEC-2020 17:25, No significant change was found Confirmed by Kiet Garay ([id number]) on 12/07/2020 8:03:31 AM Referred By: Anthony Walters Confirmed By:Kiet Garay
--- NOTE | 2020-12-07 08:04 | Electrocardiogram Report ---
Test Reason : Blood Pressure : / mmHG Vent. Rate : 109 BPM Atrial Rate : 109 BPM P-R Int : 162 ms QRS Dur : 148 ms QT Int : 368 ms P-R-T Axes : 046 -54 031 degrees QTc Int : 495 ms Sinus tachycardia with Premature supraventricular complexes Right bundle branch block Left anterior fascicular block Abnormal ECG When compared with ECG of 05-DEC-2020 20:20, Sinus rhythm has replaced Atrial fibrillation Confirmed by Kiet Garay ([id number]) on 12/07/2020 8:03:46 AM Referred By: Anthony Walters Confirmed By:Kiet Garay
--- NOTE | 2020-12-07 08:05 | Electrocardiogram Report ---
Test Reason : Blood Pressure : / mmHG Vent. Rate : 082 BPM Atrial Rate : 082 BPM P-R Int : 172 ms QRS Dur : 162 ms QT Int : 438 ms P-R-T Axes : 065 -57 042 degrees QTc Int : 511 ms Normal sinus rhythm Right bundle branch block Left anterior fascicular block Abnormal ECG When compared with ECG of 06-DEC-2020 05:24, No significant change was found Confirmed by Kiet Garay ([id number]) on 12/07/2020 8:05:27 AM Referred By: Anthony Walters Confirmed By:Kiet Garay
== END 2020-12-06 16:22 | disposition home or self-care (01) | DRG 872 ==
LOC: ED 12:03 → 2E 18:43 → SUATTDRO 18:43 → 2E 19:36